=== PATIENT | male | born 2000 | race Two or more races ===

== ENCOUNTER 2024-11-11 13:24 | Emergency (ER) | payer OTHER ==
[~2024-11-11] VITALS: Ht 180.3 cm; Wt 108.9 kg
[2024-11-11] MEDS ORDERED: METFORMIN HCL1000 M2 (13:47)
[2024-11-11] MEDS ORDERED: INSULIN REGULAR, HUMAN 1,000 UNIT/10 ML UNITS IV ONE (14:00)
== END 2024-11-11 15:37 | disposition home or self-care (01) ==
LOC: ER 13:24
DX: M12.522 Traumatic arthropathy, left elbow (principal)